=== PATIENT | female | born 1970 | race Caucasian/White ===

== ENCOUNTER 2019-06-27 22:12 | Inpatient (IN) | payer BC, OTHER ==
[~2019-06-27] VITALS: Ht 160 cm; Wt 118.8 kg
[2019-06-27 22:24] VITALS: BP_SYST 155
[2019-06-28] MEDS ORDERED: NACL 0.9% 1,000 ML IV ONE (01:09)
[2019-06-28] MEDS ORDERED: KETOROLAC TROMETHAMINE 30 MG VIAL IVP ONE (01:15)
[2019-06-28 01:53] LABS: BILIRUBIN,URINE NEGATIVE (NEGATIVE); BLOOD, URINE NEGATIVE (NEGATIVE); CLARITY/URINE CLEAR (CLEAR); COLOR,URINE YELLOW (YELLOW); GLUCOSE,URINE NEGATIVE (NEGATIVE); KETONES,URINE NEGATIVE (NEGATIVE); LEUKOCYTE ESTERASE ,URINE NEGATIVE (NEGATIVE); NITRITE, URINE NEGATIVE (NEGATIVE); PROTEIN URINE NEGATIVE (NEGATIVE); UROBILINOGEN,URINE 0.2 (0.2-1.0)
[2019-06-28 02:01] LABS: BASOPHILS % (AUTO) 0.4 % (0.0-2.0); EOSINOPHILS # (AUTO) 0.2 K/uL (0.0-0.4); EOSINOPHILS % (AUTO) 1.9 % (0.0-4.0); HEMATOCRIT 42.1 % (36-48); HEMOGLOBIN 14.3 g/dL (12.0-16.0); LYMPHOCYTES # (AUTO) 2.6 K/uL (1.0-5.5); LYMPHOCYTES % (AUTO) 23.5 % (20.5-51.5); MEAN CORPUSCULAR HEMOGLOBIN 30 pg (27-31); MEAN CORPUSCULAR HGB CONC 34 % (32-36); MEAN CORPUSCULAR VOLUME 87 fL (79.0-98.0); MONOCYTES # (AUTO) 0.6 K/uL (0.0-1.0); MONOCYTES % (AUTO) 5.3 % (1.7-9.3); NEUTROPHILS # (AUTO) 7.5 K/uL (1.8-7.7); NEUTROPHILS % (AUTO) 68.9 % (40.0-70.0); PLATELET COUNT (AUTO) 207 K/uL (130-430); RED BLOOD CELL COUNT(AUTO) 4.84 MIL/uL (4.2-6.2); RED CELL DISTRIBUTION WIDTH 13.2 % (9.0-15.0); WHITE BLOOD COUNT (AUTO) 10.9 K/uL (4.8-10.8)
[2019-06-28 02:11] LABS: CALCIUM 8.7 mg/dL (8.4-11.0); CREATININE 0.57 mg/dL (0.55-1.30); POTASSIUM 3.2 mmol/L (3.5-5.1)
[2019-06-28 02:16] LABS: ALBUMIN 3.6 g/dL (3.4-4.8); TOTAL BILIRUBIN 0.8 mg/dL (0.0-1.0)
[2019-06-28] MEDS ORDERED: PANTOPRAZOLE SODIUM 40 MG/VIAL (PROTONIX) IVP ONE (02:30)
[2019-06-28] MEDS ORDERED: DIPHENHYDRAMINE INJ 50 MG/ML VIAL IVP ONE (02:30)
[2019-06-28] MEDS ORDERED: MORPHINE 4 MG/ML INJ. SYRINGE IVP ONE (02:30)
[2019-06-28] MEDS ORDERED: LEVO112T2 PO (04:25)
[2019-06-28 04:53] VITALS: BP_SYST 140
[2019-06-28] MEDS ORDERED: NACL 0.9% 1,000 ML IV SCH (05:00)
[2019-06-28] MEDS ORDERED: MORPHINE 4 MG/ML INJ. SYRINGE IVP PRN (05:30)
[2019-06-28] MEDS ORDERED: ONDANSETRON HCL 4 MG/2 ML VIAL IVP PRN ×2 (05:30→10:30)
[2019-06-28] MEDS ORDERED: ACETAMINOPHEN 325 MG TABLET PO PRN (05:30)
[2019-06-28] MEDS: LEVOTHYROXINE SODIUM 0.112 MG TABLET PO SCH (05:56)
[2019-06-28] MEDS: NACL 0.9% 1,000 ML IV SCH ×3 (06:05→21:22)
[2019-06-28] MEDS ORDERED: LEVOFLOXACIN 500 MG/D5W 100 ML IV ONE (06:19)
[2019-06-28] MEDS ORDERED: metroNIDAZOLE 500 mg/NS 100 ML IV ONE (06:19)
[2019-06-28] MEDS: LEVOFLOXACIN 500 MG/D5W 100 ML IV SCH (06:34)
[2019-06-28] MEDS: metroNIDAZOLE 500 mg/NS 100 ML IV SCH ×3 (06:34→21:22)
[2019-06-28 08:00] VITALS: BP_SYST 102
[2019-06-28] MEDS: PANTOPRAZOLE SODIUM 40 MG/VIAL (PROTONIX) IVP SCH (08:18)
[2019-06-28] MEDS ORDERED: HYDROmorphone 1 MG INJ. 1 MG/ML AMPUL IVP PRN (10:30)
[2019-06-28] MEDS ORDERED: NS IRRIG SOLN 1000 ML IR ONE (11:14)
[2019-06-28] MEDS ORDERED: MIDAZOLAM HCL 5 MG/ML VIAL (VERSED) IV ONE (11:14)
[2019-06-28] MEDS ORDERED: SUCCINYLCHOLINE CHLORIDE 20 MG/ML(QUELICIN) ONE (11:14)
[2019-06-28] MEDS ORDERED: ONDANSETRON HCL 4 MG/2 ML VIAL ONE (11:14)
[2019-06-28] MEDS ORDERED: BUPIVACAINE /EPINEPHRINE/PF 0.25% 30 ML VIAL INJ ONE (11:14)
[2019-06-28] MEDS ORDERED: LR 1,000 ML IV.SOLN IV ONE (11:14)
[2019-06-28] MEDS ORDERED: HYDROmorphone 2 MG/ML VIAL ONE (11:14)
[2019-06-28] MEDS ORDERED: DESFLURANE 15 MIN GAS INH ONE (11:14)
[2019-06-28] MEDS ORDERED: NS 1000 ML IV.SOLN IV ONE (11:14)
[2019-06-28] MEDS ORDERED: PROPOFOL 200MG/ 20ML VIAL (DIPRIVAN) IV ONE (11:14)
[2019-06-28] MEDS ORDERED: KETOROLAC TROMETHAMINE 30 MG VIAL ONE (11:14)
[2019-06-28] MEDS ORDERED: DEXAMETHASONE SOD PHOSPHATE 4 MG/ML VIAL ONE (11:14)
[2019-06-28] MEDS ORDERED: CEFAZOLIN 2 GM IVPB PREMIX 50 ML IV ONE (11:14)
[2019-06-28] MEDS ORDERED: ROCURONIUM BROMIDE 10 MG/ML (ZEMURON) ONE (11:14)
[2019-06-28] MEDS ORDERED: HYDROmorphone 1 MG INJ. 1 MG/ML AMPUL ONE (12:05)
[2019-06-28 12:30] VITALS: BP_SYST 118
[2019-06-28 15:30] VITALS: BP_SYST 117
[2019-06-28 19:55] VITALS: BP_SYST 114
[2019-06-28] MEDS: MORPHINE 2 MG/ML INJ. SYRINGE IVP PRN (19:58)
[2019-06-29 00:03] VITALS: BP_SYST 113
[2019-06-29] MEDS: LEVOFLOXACIN 500 MG/D5W 100 ML IV SCH (05:11)
[2019-06-29] MEDS: metroNIDAZOLE 500 mg/NS 100 ML IV SCH ×3 (05:11→21:52)
[2019-06-29] MEDS: NACL 0.9% 1,000 ML IV SCH ×3 (05:16→21:53)
[2019-06-29] MEDS: LEVOTHYROXINE SODIUM 0.112 MG TABLET PO SCH (06:06)
[2019-06-29] MEDS: MORPHINE 2 MG/ML INJ. SYRINGE IVP PRN ×3 (06:23→16:59)
[2019-06-29 07:04] LABS: BASOPHILS # (AUTO) 0.1 K/uL (0.0-0.2); BASOPHILS % (AUTO) 0.4 % (0.0-2.0); EOSINOPHILS % (AUTO) 0.1 % (0.0-4.0); HEMATOCRIT 40.1 % (36-48); HEMOGLOBIN 12.9 g/dL (12.0-16.0); LYMPHOCYTES # (AUTO) 1.8 K/uL (1.0-5.5); LYMPHOCYTES % (AUTO) 12.7 % (20.5-51.5); MEAN CORPUSCULAR HEMOGLOBIN 29 pg (27-31); MEAN CORPUSCULAR HGB CONC 32 % (32-36); MEAN CORPUSCULAR VOLUME 89 fL (79.0-98.0); MONOCYTES # (AUTO) 0.9 K/uL (0.0-1.0); MONOCYTES % (AUTO) 6.1 % (1.7-9.3); NEUTROPHILS # (AUTO) 11.4 K/uL (1.8-7.7); NEUTROPHILS % (AUTO) 80.7 % (40.0-70.0); PLATELET COUNT (AUTO) 198 K/uL (130-430); RED BLOOD CELL COUNT(AUTO) 4.49 MIL/uL (4.2-6.2); RED CELL DISTRIBUTION WIDTH 13.2 % (9.0-15.0); WHITE BLOOD COUNT (AUTO) 14.2 K/uL (4.8-10.8)
[2019-06-29 07:50] LABS: ALBUMIN 3.1 g/dL (3.4-4.8); CALCIUM 8.1 mg/dL (8.4-11.0); CREATININE 0.55 mg/dL (0.55-1.30); POTASSIUM 3.3 mmol/L (3.5-5.1); TOTAL BILIRUBIN 0.6 mg/dL (0.0-1.0)
[2019-06-29 08:00] VITALS: BP_SYST 125
[2019-06-29] MEDS: PANTOPRAZOLE SODIUM 40 MG/VIAL (PROTONIX) IVP SCH (08:46)
[2019-06-29 10:43] LABS: FREE T4 (FREE THYROXINE) 0.9 ng/dl (0.8-1.5); THYROID STIMULATING HORMONE 2.06 uIu/mL (0.36-3.74)
[2019-06-29 11:16] VITALS: BP_SYST 108
[2019-06-29 15:10] VITALS: BP_SYST 141
[2019-06-29 20:00] VITALS: BP_SYST 142
[2019-06-30] VITALS: BP_SYST 146
[2019-06-30] MEDS: LEVOFLOXACIN 500 MG/D5W 100 ML IV SCH (05:13)
[2019-06-30] MEDS: metroNIDAZOLE 500 mg/NS 100 ML IV SCH (06:32)
[2019-06-30] MEDS: NACL 0.9% 1,000 ML IV SCH (06:32)
[2019-06-30] MEDS: LEVOTHYROXINE SODIUM 0.112 MG TABLET PO SCH (06:33)
[2019-06-30 07:55] VITALS: BP_SYST 147
[2019-06-30] MEDS ORDERED: ACET325T53 PO (08:02)
[2019-06-30] MEDS ORDERED: PRO40 PO (08:02)
[2019-06-30] MEDS ORDERED: CEPH-568 PO (08:02)
[2019-06-30 08:04] LABS: BASOPHILS # (AUTO) 0.1 K/uL (0.0-0.2); BASOPHILS % (AUTO) 0.9 % (0.0-2.0); EOSINOPHILS # (AUTO) 0.2 K/uL (0.0-0.4); EOSINOPHILS % (AUTO) 2.1 % (0.0-4.0); HEMATOCRIT 39.4 % (36-48); HEMOGLOBIN 12.8 g/dL (12.0-16.0); LYMPHOCYTES # (AUTO) 2.1 K/uL (1.0-5.5); LYMPHOCYTES % (AUTO) 19.6 % (20.5-51.5); MEAN CORPUSCULAR HEMOGLOBIN 29 pg (27-31); MEAN CORPUSCULAR HGB CONC 33 % (32-36); MEAN CORPUSCULAR VOLUME 89 fL (79.0-98.0); MONOCYTES # (AUTO) 0.9 K/uL (0.0-1.0); MONOCYTES % (AUTO) 8.1 % (1.7-9.3); NEUTROPHILS # (AUTO) 7.5 K/uL (1.8-7.7); NEUTROPHILS % (AUTO) 69.3 % (40.0-70.0); PLATELET COUNT (AUTO) 181 K/uL (130-430); RED BLOOD CELL COUNT(AUTO) 4.42 MIL/uL (4.2-6.2); RED CELL DISTRIBUTION WIDTH 13.1 % (9.0-15.0); WHITE BLOOD COUNT (AUTO) 10.8 K/uL (4.8-10.8)
[2019-06-30 08:08] LABS: CALCIUM 8.2 mg/dL (8.4-11.0); CREATININE 0.64 mg/dL (0.55-1.30); POTASSIUM 3.1 mmol/L (3.5-5.1); TOTAL BILIRUBIN 0.6 mg/dL (0.0-1.0)
[2019-06-30] MEDS: PANTOPRAZOLE SODIUM 40 MG/VIAL (PROTONIX) IVP SCH (08:50)
[2019-06-30 11:02] VITALS: BP_SYST 147
[2019-06-30] MEDS ORDERED: POTASSIUM CHLORIDE 20 MEQ TAB.PRT.SR PO ONE (12:15)
== END 2019-06-30 13:40 | disposition home health service (06) | DRG 418 ==
LOC: SED 22:12 → SMU 06-28 04:29
PROVIDERS: ADMIT Internal Medicine Hospice and Palliative Medicine; ATTEND Internal Medicine Hospice and Palliative Medicine
PROC: 0FT44ZZ Resection of Gallbladder, Percutaneous Endoscopic Approach (ICD-10-PCS; principal; 2019-06-28 09:45)
DX: K80.00 Calculus of gallbladder with acute cholecystitis without obstruction (principal); E87.1 Hypo-osmolality and hyponatremia; Z68.42 Body mass index [BMI] 45.0-49.9, adult; E03.9 Hypothyroidism, unspecified; I10 Essential (primary) hypertension; K42.9 Umbilical hernia without obstruction or gangrene; E66.01 Morbid (severe) obesity due to excess calories; Z88.0 Allergy status to penicillin; Z79.899 Other long term (current) drug therapy
CPT/HCPCS: 36415; 71045; 74021; 76700-TC; 80053; 80061; 81003; 81025; 83036; 83690-TC; 84439; 84443-TC; 85025; 87081; 88304; 93005; 96361; 96374; 96375; 99285; C1727; C9113; J0330; J0690; J1100; J1170; J1200; J1885; J1956; J2250; J2270; J2405; J2704; J3490; J7030; J7120

== ENCOUNTER 2020-11-20 09:17 | Emergency (ER) | payer BC, OTHER ==
[~2020-11-20] VITALS: Ht 160 cm; Wt 113.4 kg
[~2020-11-20 09:17] MED LIST: ACET325T53 PO; CEPH-568 PO; PRO40 PO
[2020-11-20 09:28] VITALS: BP_SYST 130
--- NOTE | 2020-11-20 09:32 | NUR ---
Patient to ER bed 8 to gown for evaluation. Side rails up. Report given to DANIEL BEGUM.
--- NOTE | 2020-11-20 09:40 | NUR ---
pt came into ER with complaint of abdominal pain 03/14 x14 days reports it miller through her whole stomach and cramps. pt reports diarrheax 14 days and blood in her stool x3 days. pt AAOx4 speaking in full sentences resting in [facility].
--- NOTE | 2020-11-20 09:45 | NUR ---
ER at bedside examining patient.
[2020-11-20] MEDS ORDERED: NACL 0.9% 1,000 ML IV ONE (10:00)
[2020-11-20] MEDS ORDERED: MORPHINE 2 MG/ML INJ. SYRINGE IVP ONE ×2 (10:15→11:30)
[2020-11-20] MEDS ORDERED: ONDANSETRON HCL 4 MG/2 ML VIAL IVP ONE (10:15)
[2020-11-20 10:16] LABS: BASOPHILS # (AUTO) 0.1 K/uL (0.0-0.2); BASOPHILS % (AUTO) 1.3 % (0.0-2.0); EOSINOPHILS # (AUTO) 0.1 K/uL (0.0-0.4); EOSINOPHILS % (AUTO) 1.3 % (0.0-4.0); HEMATOCRIT 44.6 % (36-48); HEMOGLOBIN 14.9 g/dL (12.0-16.0); LYMPHOCYTES # (AUTO) 2.5 K/uL (1.0-5.5); LYMPHOCYTES % (AUTO) 23.9 % (20.5-51.5); MEAN CORPUSCULAR HEMOGLOBIN 29 pg (27-31); MEAN CORPUSCULAR HGB CONC 34 % (32-36); MEAN CORPUSCULAR VOLUME 87 fL (79.0-98.0); MONOCYTES # (AUTO) 0.6 K/uL (0.0-1.0); MONOCYTES % (AUTO) 5.9 % (1.7-9.3); NEUTROPHILS # (AUTO) 7.1 K/uL (1.8-7.7); NEUTROPHILS % (AUTO) 67.6 % (40.0-70.0); PLATELET COUNT (AUTO) 191 K/uL (130-430); RED BLOOD CELL COUNT(AUTO) 5.14 MIL/uL (4.2-6.2); RED CELL DISTRIBUTION WIDTH 13.2 % (9.0-15.0); WHITE BLOOD COUNT (AUTO) 10.5 K/uL (4.8-10.8)
--- NOTE | 2020-11-20 10:21 | NUR ---
covid swab collected and sent ot lab
[2020-11-20 10:25] LABS: CALCIUM 9.1 mg/dL (8.4-11.0); CREATININE 0.77 mg/dL (0.55-1.30); POTASSIUM 3.6 mmol/L (3.5-5.1)
[2020-11-20 10:31] LABS: ALBUMIN 3.6 g/dL (3.4-4.8); TOTAL BILIRUBIN 0.7 mg/dL (0.0-1.0)
--- NOTE | 2020-11-20 10:40 | NUR ---
Patient transported to radiology via wheelchair, accompanied by staff
[2020-11-20 10:50] LABS: BILIRUBIN,URINE NEGATIVE (NEGATIVE); BLOOD, URINE NEGATIVE (NEGATIVE); CLARITY/URINE CLEAR (CLEAR); COLOR,URINE YELLOW (YELLOW); GLUCOSE,URINE NEGATIVE (NEGATIVE); KETONES,URINE NEGATIVE (NEGATIVE); LEUKOCYTE ESTERASE ,URINE NEGATIVE (NEGATIVE); NITRITE, URINE NEGATIVE (NEGATIVE); PROTEIN URINE NEGATIVE (NEGATIVE); UROBILINOGEN,URINE 0.2 (0.2-1.0)
[2020-11-20] MEDS ORDERED: CIPR500T5 PO (11:30)
[2020-11-20] MEDS ORDERED: ACET325T53 PO (11:30)
[2020-11-20 11:43] VITALS: BP_SYST 130
--- NOTE | 2020-11-20 11:51 | NUR ---
Patient given written and verbal discharge instructions and verbalizes understanding. ER MD discussed with patient the results and treatment provided. Patient in stable condition. ID arm band removed. IV catheter removed intact and dressing applied, no active bleeding. Rx of CIPRO AND TYLENOL given. Patient educated on pain management and to follow up with PMD. Pain Scale 3/10. Opportunity for questions provided and answered. Medication side effect fact sheet provided.
== END 2020-11-20 11:51 | disposition home or self-care (01) ==
LOC: SED 09:17
DX: R19.7 Diarrhea, unspecified (principal); R10.30 Lower abdominal pain, unspecified; E03.9 Hypothyroidism, unspecified; Z88.0 Allergy status to penicillin; Z88.1 Allergy status to other antibiotic agents; Z20.822 Contact with and (suspected) exposure to COVID-19
CPT/HCPCS: 36415; 74176; 76376; 80053; 81003; 83690; 85025; 85610; 85730; 87426; 96361; 96374; 96375; 96376; 99284; J2270; J2405; J7030

== ENCOUNTER 2023-01-06 11:29 | Emergency (ER) | payer OTHER, BC ==
[~2023-01-06] VITALS: Ht 160 cm; Wt 122.5 kg
[~2023-01-06 11:29] MED LIST changes: +CIPR500T5 PO
--- NOTE | 2023-01-06 11:35 | NUR ---
Patient to ER bed 03 to gown for evaluation. Side rails up.
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
--- NOTE | 2023-01-06 11:36 | NUR ---
DR. HENSON AT BEDSIDE TO ASSESS PT.
[2023-01-06 11:40] VITALS: BP_SYST 139; PULSE 72; RESP 18; TEMP 97; O2SAT 96
[2023-01-06] MEDS ORDERED: LIDO700A30 TP (13:31)
[2023-01-06] MEDS ORDERED: DICL100G33 TP (13:31)
--- NOTE | 2023-01-06 14:00 | NUR ---
DR. HENSON AT BEDSIDE TO DISCUSS POC.
--- NOTE | 2023-01-06 14:30 | NUR ---
Patient given written and verbal discharge instructions and verbalizes understanding. ER MD discussed with patient the results and treatment provided. Patient in stable condition. ID arm band removed. Patient educated on pain management and to follow up with PMD. Pain Scale . Opportunity for questions provided and answered. Medication side effect fact sheet provided.
[2023-01-06 14:40] VITALS: BP_SYST 137; PULSE 70; RESP 18; TEMP 97.1; O2SAT 98
== END 2023-01-06 14:30 | disposition home or self-care (01) ==
LOC: SED 11:29
DX: S83.411A Sprain of medial collateral ligament of right knee, initial encounter (principal); M54.50 Low back pain, unspecified; M54.2 Cervicalgia; Z88.0 Allergy status to penicillin; Z88.1 Allergy status to other antibiotic agents; Z79.899 Other long term (current) drug therapy; V89.2XXA Person injured in unspecified motor-vehicle accident, traffic, initial encounter; Y93.89 Activity, other specified; Y92.89 Other specified places as the place of occurrence of the external cause; Y99.8 Other external cause status
CPT/HCPCS: 72128; 72131; 73564; 76376; 99284

== ENCOUNTER 2023-02-11 14:50 | Emergency (ER) | payer BC, OTHER ==
[~2023-02-11] VITALS: Ht 160 cm; Wt 122.5 kg
[2023-02-11 14:50] VITALS: BP_SYST 138; PULSE 93; RESP 18; TEMP 97.2; O2SAT 96
[~2023-02-11 14:50] MED LIST changes: +DICL100G33 TP; +LIDO700A30 TP
[2023-02-11] MEDS ORDERED: IBUPROFEN 800 MG TABLET PO ONE (15:00)
[2023-02-11] MEDS ORDERED: DIPHENHYDRAMINE HCL 50 MG CAPSULE PO ONE (15:00)
[2023-02-11] MEDS ORDERED: DIPHENHYDRAMINE HCL 25 MG CAPSULE ONE (15:34)
[2023-02-11] MEDS ORDERED: IBUP-1971 PO (17:10)
[2023-02-11 17:41] VITALS: BP_SYST 136; PULSE 86; RESP 18; TEMP 98.1; O2SAT 97
== END 2023-02-11 17:46 | disposition home or self-care (01) ==
LOC: SED 14:50
DX: M77.12 Lateral epicondylitis, left elbow (principal); Z88.0 Allergy status to penicillin; Z88.1 Allergy status to other antibiotic agents; Z79.899 Other long term (current) drug therapy
CPT/HCPCS: 99284; 93971; 73080; Q0163 ×2